=== PATIENT | male | born 1960 | race Caucasian/White ===

== ENCOUNTER 2017-10-24 14:27 | Emergency (ER) | payer SELFPAY, OTHER ==
[2017-10-24] MEDS: HYDROCODONE/APAP (10/325) TAB PO (15:33)
[2017-10-24] MEDS: ONDANSETRON (ODT) 4 MG TAB ODT (15:33)
[2017-10-24] MEDS: DIPHTH/TET/ACEL PERTUSS (ADULT) 0.5 ML VIAL IM* (15:34)
== END 2017-10-24 17:50 | disposition home or self-care (01) ==
LOC: E/R 14:27
DX: S50.11XA Contusion of right forearm, initial encounter (principal); V48.2XXA Person on outside of car injured in noncollision transport accident in nontraffic accident, initial encounter; Y92.89 Other specified places as the place of occurrence of the external cause; Z23 Encounter for immunization
CPT/HCPCS: 29105; 73090-RT; 90471; 90715; 99283-25